=== PATIENT | male | born 1960 ===

== ENCOUNTER 2017-09-29 08:21 | Emergency (ER) | payer BC ==
[2017-09-29 09:49] VITALS: BP 140/76
--- NOTE | 2017-09-29 10:09 | UC ---
Respiratory Complaint HPI - HPI Summary HPI Summary: 57 yo male with <48 hr hx of f/c, runny nose/cough/sore throat/headache and myalgias no n/v/d - History of Current Complaint Chief Complaint: UCGeneralIllness Stated Complaint: SORE THROAT, COUGH Time Seen by Provider: 09/29/17 09:37 Hx Obtained From: Patient Onset/Duration: Gradual Onset Timing: Constant Severity Initially: Mild Severity Currently: Mild Pain Intensity: 2 Pain Scale Used: 0-10 Numeric Character: Cough: Nonproductive Aggravating Factors: Nothing Alleviating Factors: Nothing Associated Signs And Symptoms: Positive: Fever, Chills, Nasal Congestion - Allergies/Home Medications Allergies/Adverse Reactions: Allergies Allergy/AdvReac Type Severity Reaction Status Date / Time No Known Allergies Allergy Verified 09/29/17 09:50 Home Medications: Home Medications Bp Med Unknown 1 tab PO DAILY 09/29/17 [History Confirmed 09/29/17] Pantoprazole Sodium 20 mg PO DAILY 09/29/17 [History Confirmed 09/29/17] Pravastatin (NF) [Pravachol (NF)] 20 mg PO 1700 09/29/17 [History Confirmed ] PMH/Surg Hx/FS Hx/Imm Hx Previously Healthy: Yes - Surgical History Surgical History: Yes Surgery Procedure, Year, and Place: Left knee miniscus repair - Family History Known Family History: Positive: Hypertension - Social History Alcohol Use: Rare Substance Use Type: None Smoking Status (MU): Never Smoked Tobacco Review of Systems Constitutional: Fever, Chills ENT: Nasal Discharge, Sinus Congestion Respiratory: Cough Musculoskeletal: Myalgia Is Patient Immunocompromised?: No All Other Systems Reviewed And Are Negative: Yes Physical Exam Triage Information Reviewed: Yes Appearance: Well-Appearing, No Pain Distress, Well-Nourished Vital Signs: Initial Vital Signs Temp 98.2 F 09/29/17 09:45 Pulse 64 09/29/17 09:45 Resp 14 09/29/17 09:45 BP 140/76 09/29/17 09:45 Pulse Ox 99 09/29/17 09:45 Eyes: Positive: Conjunctiva Clear ENT: Positive: Pharynx normal, Nasal drainage, TMs normal, Uvula midline. Negative: Tonsillar swelling, Tonsillar exudate, Trismus, Muffled voice, Hoarse voice, Sinus tenderness Dental Exam: Normal Neck: Positive: Supple, Nontender, No Lymphadenopathy Respiratory: Positive: Lungs clear, Normal breath sounds, No respiratory distress, No accessory muscle use Cardiovascular: Positive: RRR, No Murmur Bowel Sounds: Positive: Present Musculoskeletal Exam: Normal Neurological: Positive: Alert Psychological Exam: Normal Skin Exam: Normal UC Diagnostic Evaluation - Laboratory Pertinent Lab Values Are: WNL - flu (-) O2 Sat by Pulse Oximetry: 99 - normal/not hypoxic Respiratory Course/Dx - Differential Dx/Diagnosis Provider Diagnoses: viral URI Discharge - Discharge Plan Condition: Stable Disposition: HOME Patient Education Materials: Viral Syndrome (ED) Referrals: Harrison Sen MD [Primary Care Provider] - 4 Days (if not better) Additional Instructions: rest fluids tylenol recheck for worsening symptoms flu test (-)
== END 2017-09-29 10:41 | disposition home or self-care (01) ==
LOC: UCCORT 08:21
DX: J06.9 Acute upper respiratory infection, unspecified (principal)
CPT/HCPCS: 87502; 99201; G0463

== ENCOUNTER 2018-06-14 10:23 | Emergency (ER) | payer BC ==
[2018-06-14 11:46] VITALS: BP 138/73
--- NOTE | 2018-06-14 12:12 | UC ---
Throat Pain/Nasal [place] HPI - HPI Summary HPI Summary: 2 week hx of cough, sinus congestion, malaise. 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 - History of Current Complaint Chief Complaint: UCRespiratory Stated Complaint: SINUSES,COUGH Time Seen by Provider: 06/14/18 12:11 Hx Obtained From: Patient Onset/Duration: Gradual Onset, Lasting Weeks - 2 Pain Intensity: 6 Cough: Productive Associated Signs & Symptoms: Positive: Dysphagia, Hoarseness, Sinus Discomfort - Epiglottits Risk Factors Epiglottis Risk Factors: Negative - Allergies/Home Medications Allergies/Adverse Reactions: Allergies Allergy/AdvReac Type Severity Reaction Status Date / Time No Known Allergies Allergy Verified 06/14/18 11:41 PMH/Surg Hx/FS Hx/Imm Hx Previously Healthy: Yes GI/ History: Gastroesophageal Reflux - Surgical History Surgical History: Yes Surgery Procedure, Year, and Place: Left knee miniscus repair - Family History Known Family History: Positive: Hypertension, Renal Disease - father of renal failure - Social History Occupation: Employed Full-time Lives: With Family Alcohol Use: Rare Substance Use Type: None Smoking Status (MU): Never Smoked Tobacco Review of Systems Constitutional: Fatigue Skin: Negative Eyes: Negative ENT: Sore Throat, Ear Ache, Sinus Congestion Respiratory: Cough Cardiovascular: Negative Gastrointestinal: Negative Genitourinary: Negative Motor: Negative Neurovascular: Negative Musculoskeletal: Negative Neurological: Negative Psychological: Negative Is Patient Immunocompromised?: No All Other Systems Reviewed And Are Negative: Yes Physical Exam Triage Information Reviewed: Yes Appearance: No Pain Distress, Ill-Appearing Vital Signs: Initial Vital Signs Temp 98 F 06/14/18 11:43 Pulse 83 06/14/18 11:43 Resp 16 06/14/18 11:43 BP 138/73 06/14/18 11:43 Pulse Ox 98 06/14/18 11:43 Vital Signs Reviewed: Yes Eyes: Positive: Conjunctiva Clear ENT: Positive: Pharyngeal erythema - posterior, TM dull - bilateral serous fluidd Neck: Positive: Supple, Nontender, No Lymphadenopathy Respiratory: Positive: Lungs clear, Normal breath sounds Cardiovascular: Positive: RRR, No Murmur Skin Exam: Normal, Other - healing wound nasal bridge, erythema over approx 1 cm area Throat Pain/Nasal Course/Dx - Course Course Of Treatment: amoxicillin for sinusitis. - Differential Dx/Diagnosis Differential Diagnosis/HQI/PQRI: Laryngitis, Otitis Media, Tonsillitis, URI Provider Diagnoses: bacterial sinusitis. Discharge - Sign-Out/Discharge Documenting (check all that apply): Patient Departure All imaging exams completed and their final reports reviewed: No Studies - Discharge Plan Condition: Stable Disposition: HOME Prescriptions: Amoxicillin PO (*) [Amoxicillin 875 MG (*)] 875 mg PO BID #20 tab Patient Education Materials: Sinusitis (ED) Referrals: Harrison Sen MD [Primary Care Provider] - Additional Instructions: Take full course of amoxicillin for treatment of sinusitis. Use saline spray and cough suppressants as needed. - Billing Disposition and Condition Condition: STABLE Disposition: Home
== END 2018-06-14 12:38 | disposition home or self-care (01) ==
LOC: UCCORT 10:23
DX: J32.8 Other chronic sinusitis (principal)
CPT/HCPCS: 99212; G0463

== ENCOUNTER 2019-04-26 08:48 | Emergency (ER) | payer BC ==
[2019-04-26 09:11] VITALS: BP 146/85
--- NOTE | 2019-04-26 09:28 | UC ---
UC General HPI - HPI Summary HPI Summary: pt is c/o ear pressure, sinus congestion and a sore throat x 2 days. 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 no fever. - History of Current Complaint Chief Complaint: UCRespiratory Stated Complaint: ST,EAR PAIN Time Seen by Provider: 04/26/19 09:16 Hx Obtained From: Patient Onset/Duration: Gradual Onset Timing: Constant Pain Intensity: 0 Associated Signs & Symptoms: Negative: Fever, Headache - Allergy/Home Medications Allergies/Adverse Reactions: Allergies Allergy/AdvReac Type Severity Reaction Status Date / Time No Known Allergies Allergy Verified 04/26/19 09:05 Home Medications: Home Medications Vit A/Vit C/Vit E/Zinc/Copper [Preservision Areds Softgel] 1 each PO DAILY 04/26 [History Confirmed 04/26/19] Vitamin THERAPEUTIC TAB* [Theragran TAB*] 1 tab PO DAILY 04/26/19 [History Confirmed 04/26/19] PMH/Surg Hx/FS Hx/Imm Hx GI/ History: Gastroesophageal Reflux - Surgical History Surgical History: Yes Surgery Procedure, Year, and Place: Left Knee Arthroscopy (Meniscus Tear), ~1999 , [place] - Family History Known Family History: Positive: Hypertension, Renal Disease - father of renal failure - Social History Alcohol Use: Rare Substance Use Type: None Smoking Status (MU): Never Smoked Tobacco Review of Systems All Other Systems Reviewed And Are Negative: No Constitutional: Negative: Fever, Chills Eyes: Negative: Eye Redness Respiratory: Negative: Shortness Of Breath, Cough Cardiovascular: Negative: Palpitations, Chest Pain Neurological: Negative: Headache Physical Exam Triage Information Reviewed: Yes Appearance: Well-Appearing Vital Signs: Initial Vital Signs Temp 98.3 F 04/26/19 09:04 Pulse 70 04/26/19 09:04 Resp 16 04/26/19 09:04 BP 146/85 04/26/19 09:04 Pulse Ox 100 04/26/19 09:04 Vital Signs Reviewed: Yes Eyes: Positive: Conjunctiva Clear ENT: Positive: Pharyngeal erythema, Nasal congestion, Nasal drainage - clear, TMs normal - .canals clear and no mastoid tenderness, Uvula midline. Negative: Trismus, Muffled voice, Hoarse voice, Sinus tenderness Neck: Positive: Supple, Nontender, No Lymphadenopathy Respiratory: Positive: Lungs clear, Normal breath sounds Cardiovascular: Positive: RRR Neurological: Positive: Alert Psychological: Positive: Age Appropriate Behavior Skin Exam: Normal Diagnostics - Laboratory Lab Results: rapid strep=neg Course/Dx - Diagnoses Provider Diagnosis: URI (upper respiratory infection), Sore throat Discharge ED - Sign-Out/Discharge Documenting (check all that apply): Patient Departure All imaging exams completed and their final reports reviewed: No Studies - Discharge Plan Condition: Stable Disposition: HOME Patient Education Materials: Upper Respiratory Infection (DC), Pharyngitis (ED) Referrals: Harrison Sen MD [Primary Care Provider] - Additional Instructions: FOLLOW UP IF NOT BETTER IN 5-7 DAYS OR SOONER IF WORSE. - Billing Disposition and Condition Condition: STABLE Disposition: Home
== END 2019-04-26 09:59 | disposition home or self-care (01) ==
LOC: UCCORT 08:48
DX: J06.9 Acute upper respiratory infection, unspecified (principal); J02.9 Acute pharyngitis, unspecified
CPT/HCPCS: 87651; 99211; G0463